=== PATIENT | female | born 1950 | race Caucasian/White ===

== ENCOUNTER 2023-05-27 10:31 | Outpatient (CLI) | payer MEDICARE ==
[~2023-05-27] VITALS: Ht 165.1 cm; Wt 84.1 kg
[2023-05-27] MEDS ORDERED: PERFLUTREN PROTEIN-A MICROSPHR (Optison) 0.22 MG/ML 3ML VIAL IV ONE (11:10)
== END 2023-05-27 23:59 | disposition home or self-care (01) ==
LOC: CARD DIAG 10:31
PROVIDERS: ATTEND Internal Medicine Interventional Cardiology
DX: I08.0 Rheumatic disorders of both mitral and aortic valves (principal); I25.10 Atherosclerotic heart disease of native coronary artery without angina pectoris
CPT/HCPCS: Q9956

== ENCOUNTER 2024-06-24 09:47 | Outpatient (CLI) | payer MEDICARE, OTHER ==
[~2024-06-24] VITALS: Ht 165.1 cm; Wt 80.7 kg
[2024-06-24] MEDS ORDERED: PERFLUTREN PROTEIN-A MICROSPHR (Optison) 0.22 MG/ML 3ML VIAL IV ONE (10:20)
== END 2024-06-24 23:59 | disposition home or self-care (01) ==
LOC: CARD DIAG 09:47
PROVIDERS: ATTEND Internal Medicine Interventional Cardiology
DX: I08.1 Rheumatic disorders of both mitral and tricuspid valves (principal); I50.23 Acute on chronic systolic (congestive) heart failure; I21.09 ST elevation (STEMI) myocardial infarction involving other coronary artery of anterior wall; R06.02 Shortness of breath
CPT/HCPCS: C8929; Q9956; 93306